=== PATIENT | male | born 1995 | race Caucasian/White ===

== ENCOUNTER 2017-07-14 13:21 | Emergency (ER) | payer SELFPAY ==
[~2017-07-14] VITALS: Ht 175.3 cm; Wt 83.4 kg
[~2017-07-14 13:21] MED LIST: VALA1TAB PO
[2017-07-14 13:23] VITALS: BP 137/76; PULSE 80; RESP 18; TEMP 97.5; O2SAT 98
[2017-07-14] MEDS ORDERED: METHOCARBAMOL 500 MG TAB PO ONE (14:00)
[2017-07-14] MEDS ORDERED: IBUPROFEN 800 MG TAB PO ONE (14:00)
--- NOTE | 2017-07-14 14:30 | PD ---
HPI Chief Complaint: Pain: Acute or Chronic Time Seen by Provider: 13:50 Travel History International Travel<30 days: No Contact w/Intl Traveler<30days: No Traveled to known affect area: No History of Present Illness HPI 21-year-old male presents to the emergency room for evaluation of right lower leg pain for the past week that worsened 4 days ago. Patient states he has fallen off his skateboard a few times but denies any direct trauma or injury. States he believes the pain is caused by using his right leg to push off the ground while using his skateboard. He began using it more frequently recently as he just became homeless and that's his only transportation. Patient has no access to medication; has not taken anything for pain. Pain is intermittent and worsened with certain range of motion and when he touches the leg. Sometimes he has pain at rest but not always. He denies trauma or injury to the back. Reports pain that is most localized to the right lateral aspect of the ankle. He has associated pain in the buttocks that goes down the entire right leg. States it feels like his lateral malleolus is asleep. He has been able to ambulate since onset of pain. Denies saddle anesthesia or loss of bowel or bladder control. Denies IV drug use, weight loss, night sweats, fever , chills, or recent immobilization. 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) Immunizations Current: Yes Shingles: Yes Tetanus Vaccination: Unknown Influenza Vaccination: No Past Surgical History Tonsillectomy: Yes (ADNOIDS) Social History Alcohol Use: No Tobacco Use: No Substance Use: No Allergies-Medications (Allergen,Severity, Reaction): Coded Allergies: amphetamine (Unverified Allergy, Severe, BLOOD VESSELS AROUND EYES BROKE, 07/14/17) atomoxetine (Unverified Allergy, Severe, NEURO S/S, 07/14/17) codeine (Unverified Allergy, Severe, RASH/SWELLING, 07/14/17) dextroamphetamine (Unverified Allergy, Severe, BLOOD VESSELS AROUND EYES BROKE, 07/14/17) methylphenidate (Unverified Allergy, Severe, ALTERED SLEEP SCHEDULE, ) penicillin G (Unverified Allergy, Severe, HIVES AND SWELLING, 07/14/17) bupropion (Unverified Allergy, Unknown, VOMITING, 07/14/17) Reported Meds & Prescriptions Reported Meds & Active Scripts Active Ibuprofen 600 Mg Tab 600 Mg PO Q8HR PRN Robaxin (Methocarbamol) 750 Mg Tab 750 Mg PO Q8HR Review of Systems Except as stated in HPI: all other systems reviewed are Neg Physical Exam Narrative GENERAL: Well-nourished, well-developed male in no acute distress. Afebrile. Ambulatory. SKIN: Focused skin assessment warm/dry. No erythema or ecchymosis. No increased warmth. HEAD: Normocephalic. EYES: No scleral icterus. No injection or drainage. NECK: Supple, trachea midline. No JVD or lymphadenopathy. CARDIOVASCULAR: Regular rate and rhythm without murmurs, gallops, or rubs. RESPIRATORY: Breath sounds equal bilaterally. No accessory muscle use. MUSCULOSKELETAL: No cyanosis. 2+ dorsalis pedis pulse. Full range motion of the right lower extremity. Less than 2 second capillary refill distally. No bony tenderness to palpation. No edema. Compartments soft. BACK: Nontender without obvious deformity. No CVA tenderness. Data Data Last Documented VS Vital Signs Date Time Temp Pulse Resp B/P (MAP) Pulse Ox O2 Delivery O2 Flow Rate FiO2 07/14/17 14:54 18 07/14/17 13:23 97.5 80 137/76 (96) 98 Orders Orders Ibuprofen (Motrin) (07/14/17 14:00) Methocarbamol (Robaxin) (07/14/17 14:00) MDM Medical Decision Making Medical Screen Exam Complete: Yes Emergency Medical Condition: Yes Medical Record Reviewed: Yes Differential Diagnosis Muscle strain, spasm, back injury, sciatica Narrative Course 21-year-old male presents to the emergency room for evaluation of nonspecific right leg pain for the past week that became excruciating 4 days ago. Pain is intermittent and worse with certain range of motion. Sometimes occurs at rest. Difficult to localize. He has been ambulatory and using his skateboard since onset. Patient believes it may be due to recent increase in using his skateboard as it is his only transportation since becoming homeless. Right lower extremity is neurovascularly intact with 2+ dorsalis pedis pulse. There is no erythema, ecchymosis or edema, effusion, bony tenderness to palpation. Compartments soft. There is no midline tenderness of the spine. No risk factors for DVT, epidural abscess, or bone cancer. No indication for imaging at this time. I cleaned muscle strain. Patient given ibuprofen and Robaxin the emergency room and discharged with prescriptions for the same. Told to follow up with a primary care physician and return for worsening symptoms. He understands and agrees to plan. Diagnosis Primary Impression: Muscle strain, lower leg Qualified Codes: S86.911A - Strain of unspecified muscle(s) and tendon(s) at lower leg level, right leg, initial encounter Referrals: Primary Care Physician Additional Instructions: Rest and drink plenty of fluids. Take Robaxin as directed, as needed for pain. Take ibuprofen with food as directed, as needed for pain. Apply ice to the affected area for 20 minutes at a time, as needed for pain and swelling. Follow-up with a primary care physician. Return to the emergency room for worsening symptoms. Med/Other Pt SpecificInfo: Prescription(s) given Scripts Ibuprofen (Ibuprofen) 600 Mg Tab 600 MG PO Q8HR Y for PAIN, #21 TAB 0 Refills Prov: Yesi Bender MD 07/14/17 Methocarbamol (Robaxin) 750 Mg Tab 750 MG PO Q8HR for Muscle Spasm, #10 TAB 0 Refills Prov: Yesi Bender MD 07/14/17 Disposition: 01 DISCHARGE HOME Condition: Stable Lesly Celeste Jul 14, 2017 14:30
[2017-07-14] MEDS ORDERED: IBUP-232 PO (14:31)
[2017-07-14] MEDS ORDERED: ROBA750T PO (14:31)
[2017-07-14 14:54] VITALS: RESP 18
== END 2017-07-14 15:05 | disposition home or self-care (01) ==
LOC: PHEFT 13:21
DX: S86.911A Strain of unspecified muscle(s) and tendon(s) at lower leg level, right leg, initial encounter (principal); R20.2 Paresthesia of skin; Z86.59 Personal history of other mental and behavioral disorders; Z86.69 Personal history of other diseases of the nervous system and sense organs; Z59.0 Homelessness; X58.XXXA Exposure to other specified factors, initial encounter; Y93.51 Activity, roller skating (inline) and skateboarding
CPT/HCPCS: 99283

== ENCOUNTER 2017-09-25 13:13 | Emergency (ER) | payer SELFPAY ==
[~2017-09-25] VITALS: Ht 175.3 cm; Wt 85.0 kg
[~2017-09-25 13:13] MED LIST changes: +IBUP-232 PO; +ROBA750T PO; -VALA1TAB PO
[2017-09-25 13:21] VITALS: BP 135/67; PULSE 75; RESP 16; TEMP 98.2; O2SAT 98
[2017-09-25] MEDS ORDERED: BACT800T5 PO (14:12)
--- NOTE | 2017-09-25 14:12 | PD ---
HPI Chief Complaint: Wound/Suture/Staple Re-Check Time Seen by Provider: 13:53 Travel History International Travel<30 days: No Contact w/Intl Traveler<30days: No Traveled to known affect area: No History of Present Illness HPI 21-year-old male here with right foot pain 1 day. He reports approximately 2 weeks ago he had a superficial puncture wound by a chrissy nail which superficially punctured the foot. The puncture wound was superficial and did not bleed. He had no pain after the injury until yesterday. He denies fever or chills. He reports pain at the site which is nonradiating and worse with weightbearing and relieved with rest. This immunization is up-to-date [facility] Past Medical History Medical History: Denies Significant Hx ADD: Yes Diminished Hearing: No Integumentary: Yes (SHINGLES BY EYE) Immunizations Current: Yes Shingles: Yes Tetanus Vaccination: > 5 Years Past Surgical History Tonsillectomy: Yes (and adenoids) Social History Alcohol Use: No Tobacco Use: Yes (3/4 ppd) Substance Use: No (denies) Allergies-Medications (Allergen,Severity, Reaction): Coded Allergies: amphetamine (Unverified Allergy, Severe, BLOOD VESSELS AROUND EYES BROKE, 09/25/17) atomoxetine (Unverified Allergy, Severe, NEURO S/S, 09/25/17) codeine (Unverified Allergy, Severe, RASH/SWELLING, 09/25/17) dextroamphetamine (Unverified Allergy, Severe, BLOOD VESSELS AROUND EYES BROKE, 09/25/17) methylphenidate (Unverified Allergy, Severe, ALTERED SLEEP SCHEDULE, 09/25) penicillin G (Unverified Allergy, Severe, HIVES AND SWELLING, 09/25/17) bupropion (Unverified Allergy, Unknown, VOMITING, 09/25/17) Reported Meds & Prescriptions Reported Meds & Active Scripts Active Bactrim DS (Sulfamethoxazole-Trimethoprim) 800-160 Mg Tab 1 Tab PO BID Review of Systems Except as stated in HPI: all other systems reviewed are Neg General / Constitutional: No: Fever Physical Exam Narrative GENERAL: Well-nourished, well-developed patient. SKIN: Focused skin assessment warm/dry. Small 0.5 cm area of erythema with a tiny central pustule and sole of the right foot. No surrounding cellulitis. No swelling of the foot. 2+ dorsal pedis pulse. Brisk cap refill HEAD: Normocephalic. EYES: No scleral icterus. No injection or drainage. NECK: Supple, trachea midline. MUSCULOSKELETAL: No cyanosis, or edema. Attention to the right foot: Small 0.5 cm area of erythema with a tiny central pustule and sole of the right foot. No surrounding cellulitis. No swelling of the foot. 2+ dorsal pedis pulse. Brisk cap refill Data Data Last Documented VS Vital Signs Date Time Temp Pulse Resp B/P (MAP) Pulse Ox O2 Delivery O2 Flow Rate FiO2 09/25/17 13:21 98.2 75 16 135/67 (89) 98 Orders Orders Ed Discharge Order (09/25/17 14:12) MDM Medical Decision Making Medical Screen Exam Complete: Yes Emergency Medical Condition: Yes Differential Diagnosis Abscess, cellulitis, wound infection Narrative Course 21 year old male here with right foot pain 1 day. Patient reports approximately 3. Superficial puncture wound by a chrissy nail. He has mild tenderness and pain at the site of the puncture wound. There is no swelling of the foot there is mild superficial tenderness at the site of what he says was a puncture wound. I do not suspect foreign body. He has a small pustule without induration or fluctuance at the sole of the foot. He denies fever or chills. He is nontoxic appearing. He'll from Bactrim. Diagnosis Primary Impression: Wound infection Referrals: Primary Care Physician Additional Instructions: Take antibiotics as prescribed. Ice and elevate the extremity. Take ibuprofen as needed for pain. With your primary doctor for recheck Scripts Sulfamethoxazole-Trimethoprim (Bactrim DS) 800-160 Mg Tab 1 TAB PO BID for Infection, #20 TAB 0 Refills Prov: Michell Cha 09/25/17 Disposition: 01 DISCHARGE HOME Condition: Stable Michell Cha Sep 25, 2017 14:12
== END 2017-09-25 14:37 | disposition home or self-care (01) ==
LOC: PHEFT 13:13
DX: L08.89 Other specified local infections of the skin and subcutaneous tissue (principal); W45.0XXA Nail entering through skin, initial encounter
CPT/HCPCS: 99283

== ENCOUNTER 2017-10-05 12:18 | Emergency (ER) | payer SELFPAY ==
[~2017-10-05] VITALS: Ht 175.3 cm; Wt 86.1 kg
[~2017-10-05 12:18] MED LIST changes: +BACT800T5 PO; -IBUP-232 PO; -ROBA750T PO
[2017-10-05 12:29] VITALS: BP 133/78; PULSE 75; RESP 18; TEMP 98.6; O2SAT 98
[2017-10-05] MEDS ORDERED: BACT800T5 PO (14:11)
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
[2017-10-05] MEDS ORDERED: ACETAMINOPHEN 325 MG TAB PO ONE (14:15)
== END 2017-10-05 14:23 | disposition home or self-care (01) ==
LOC: PHEFT 12:18
DX: S61.432A Puncture wound without foreign body of left hand, initial encounter (principal); F17.200 Nicotine dependence, unspecified, uncomplicated; W26.0XXA Contact with knife, initial encounter
CPT/HCPCS: 99283

== ENCOUNTER 2018-02-01 20:03 | Emergency (ER) | payer OTHER ==
--- NOTE | 2018-02-01 20:43 | PD ---
HPI Chief Complaint: Psychiatric Symptoms Time Seen by Provider: 20:35 Travel History International Travel<30 days: No Contact w/Intl Traveler<30days: No History of Present Illness HPI Patient comes in the emergency department under [place] act by police for reported being intoxicated and violent. Patient admits to drinking alcohol daily, but will not say how much he drinks. Patient is currently in restraints and not answering most questions just yelling and appears to be under the influence of unknown substance, thus severely limiting H&P. 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) Immunizations Current: Yes Shingles: Yes Past Surgical History Tonsillectomy: Yes (and adenoids) Social History Alcohol Use: No Tobacco Use: Yes (3/4 ppd) Substance Use: No Allergies-Medications (Allergen,Severity, Reaction): Coded Allergies: amphetamine (Unverified Allergy, Severe, BLOOD VESSELS AROUND EYES BROKE, 10/05/17) atomoxetine (Unverified Allergy, Severe, NEURO S/S, 10/05/17) codeine (Unverified Allergy, Severe, RASH/SWELLING, 10/05/17) dextroamphetamine (Unverified Allergy, Severe, BLOOD VESSELS AROUND EYES BROKE, 10/05/17) methylphenidate (Unverified Allergy, Severe, ALTERED SLEEP SCHEDULE, ) penicillin G (Unverified Allergy, Severe, HIVES AND SWELLING, 10/05/17) bupropion (Unverified Allergy, Unknown, VOMITING, 10/05/17) Reported Meds & Prescriptions Reported Meds & Active Scripts Active Bactrim DS (Sulfamethoxazole-Trimethoprim) 800-160 Mg Tab 1 Tab PO BID Review of Systems ROS Limitations: Intoxication, Uncooperative, Combative Except as stated in HPI: all other systems reviewed are Neg Physical Exam Exam Limitations: Intoxication, Uncooperative, Combative Narrative GENERAL: Well-developed, overly nourished, in no acute distress, and non-ill appearing. SKIN: Focused skin assessment warm and dry. HEAD: Atraumatic. Normocephalic. EYES: Pupils equal and round. EOMI. No scleral icterus. No injection or drainage. ENT: No nasal bleeding or discharge. Mucous membranes pink and moist. NECK: Trachea midline. Supple. No nuclear rigidity. RESPIRATORY: No accessory muscle use. No respiratory distress. MUSCULOSKELETAL: No obvious deformities. No clubbing. No cyanosis. No edema. Full range of motion. NEUROLOGICAL: Awake and alert. No obvious cranial nerve deficits. Motor grossly within normal limits. Agitated speech. PSYCHIATRIC: Agitated. Data Data Orders Orders Complete Blood Count With Diff (02/01/18 20:22) Comprehensive Metabolic Panel (02/01/18 20:22) Psych Screen (02/01/18 20:22) Diet Regular Basic (02/02/18 Breakfast) Drug Screen, Random Urine (02/01/18 20:22) Alcohol (Ethanol) (02/01/18 20:22) Olanzapine Inj (Zyprexa Inj) (02/01/18 20:45) Restraints Violent (02/01/18 21:10) Labs Laboratory Tests Test 02/01/18 20:25 White Blood Count 5.7 TH/MM3 Red Blood Count 4.94 MIL/MM3 Hemoglobin 14.7 GM/DL Hematocrit 42.1 % Mean Corpuscular Volume 85.3 FL Mean Corpuscular Hemoglobin 29.7 PG Mean Corpuscular Hemoglobin Concent 34.8 % Red Cell Distribution Width 12.8 % Platelet Count 250 TH/MM3 Mean Platelet Volume 8.7 FL Neutrophils (%) (Auto) 71.8 % Lymphocytes (%) (Auto) 22.6 % Monocytes (%) (Auto) 5.2 % Eosinophils (%) (Auto) 0.2 % Basophils (%) (Auto) 0.2 % Neutrophils # (Auto) 4.1 TH/MM3 Lymphocytes # (Auto) 1.3 TH/MM3 Monocytes # (Auto) 0.3 TH/MM3 Eosinophils # (Auto) 0.0 TH/MM3 Basophils # (Auto) 0.0 TH/MM3 CBC Comment DIFF FINAL Differential Comment Blood Urea Nitrogen 8 MG/DL Creatinine 1.22 MG/DL Random Glucose 99 MG/DL Total Protein 8.3 GM/DL Albumin 4.4 GM/DL Calcium Level 9.1 MG/DL Alkaline Phosphatase 107 U/L Aspartate Amino Transf (AST/SGOT) 35 U/L Alanine Aminotransferase (ALT/SGPT) 25 U/L Total Bilirubin 0.3 MG/DL Sodium Level 144 MEQ/L Potassium Level 3.3 MEQ/L Chloride Level 109 MEQ/L Carbon Dioxide Level 22.5 MEQ/L Anion Gap 13 MEQ/L Estimat Glomerular Filtration Rate 74 ML/MIN Ethyl Alcohol Level 262 MG/DL MDM Medical Decision Making Medical Screen Exam Complete: Yes Emergency Medical Condition: Yes Differential Diagnosis Homicidal, suicidal, combative, adjustment disorder, alcohol induced mood disorder, substance induced mood disorder, psychosis Narrative Course Patient was seen and examined. Labs were obtained and reviewed with the exception of urine drug screen that has not been collected yet. Patient medically cleared for further treatment and evaluation by psych. Once patient is sober he can be reassessed at that time by different provider if he has any acute medical complaints. Final disposition per psych. Diagnosis Primary Impression: Alcohol intoxication Qualified Codes: F10.929 - Alcohol use, unspecified with intoxication, unspecified Additional Impression: Medical clearance for psychiatric admission Condition: Stable Brent Bettencourt Feb 01, 2018 20:43
[2018-02-01] MEDS ORDERED: OLANZapine IM 10 MG VIAL IM ONE (20:45)
[2018-02-01 21:09] LABS: AUTOMATED NEUTROPHIL # 4.1 TH/MM3 (1.8-7.7); BASOPHIL % 0.2 % (0.0-2.0); EOSINOPHIL % 0.2 % (0.0-4.0); HEMATOCRIT 42.1 % (39.0-51.0); HEMOGLOBIN 14.7 GM/DL (13.0-17.0); LYMPH % 22.6 % (9.0-44.0); LYMPHOCYTE # 1.3 TH/MM3 (1.0-4.8); MEAN CELL VOLUME 85.3 FL (80.0-100.0); MEAN CORPUSCULAR HEMOGLOBIN 29.7 PG (27.0-34.0); MEAN CORPUSCULAR HGB CONC 34.8 % (32.0-36.0); MEAN PLATELET VOLUME 8.7 FL (7.0-11.0); MONO % 5.2 % (0.0-8.0); MONOCYTE # 0.3 TH/MM3 (0-0.9); NEUT % 71.8 % (16.0-70.0); PLATELET COUNT 250 TH/MM3 (150-450); RED BLOOD COUNT 4.94 MIL/MM3 (4.50-5.90); RED CELL DISTRIBUTION WIDTH 12.8 % (11.6-17.2); WHITE BLOOD COUNT 5.7 TH/MM3 (4.0-11.0)
[2018-02-01 21:33] LABS: ALBUMIN 4.4 GM/DL (3.4-5.0); AST (GOT) 35 U/L (15-37); BICARBONATE 22.5 MEQ/L (21.0-32.0); BLOOD UREA NITROGEN 8 MG/DL (7-18); CALCIUM 9.1 MG/DL (8.5-10.1); CHLORIDE 109 MEQ/L (98-107); CREATININE 1.22 MG/DL (0.60-1.30); GLOMERULAR FILTRATION RATE 74 ML/MIN (>89); GLUCOSE,RANDOM 99 MG/DL (74-106); SODIUM (NA) 144 MEQ/L (136-145)
[2018-02-01 21:34] LABS: ALT (GPT) 25 U/L (12-78)
[2018-02-01 21:36] LABS: ALKALINE PHOSPHATASE 107 U/L (45-117); TOTAL BILIRUBIN ADULT 0.3 MG/DL (0.2-1.0); TOTAL PROTEIN 8.3 GM/DL (6.4-8.2)
[2018-02-02 02:43] VITALS: BP 122/65; PULSE 63; RESP 16; TEMP 97.9
[2018-02-02 06:50] VITALS: BP 151/68; PULSE 70; RESP 16
--- NOTE | 2018-02-02 08:41 | PD ---
Physical Exam Date Seen by Provider: Feb 02, 2018 Time Seen by Provider: 08:40 Narrative 22-year-old previously medically cleared for psychiatric evaluation has been seen by psychiatric staff and deemed worthy of transfer to [facility]. Patient requires further treatment at that facility. Patient remains medically stable at time of transfer. Data Data Last Documented VS Vital Signs Date Time Temp Pulse Resp B/P (MAP) Pulse Ox O2 Delivery O2 Flow Rate FiO2 02/02/18 06:50 70 16 151/68 (95) Room Air 02/02/18 02:43 97.9 Orders Orders Complete Blood Count With Diff (02/01/18 20:22) Comprehensive Metabolic Panel (02/01/18 20:22) Psych Screen (02/01/18 20:22) Diet Regular Basic (02/02/18 Breakfast) Drug Screen, Random Urine (02/01/18 20:22) Alcohol (Ethanol) (02/01/18 20:22) Olanzapine Inj (Zyprexa Inj) (02/01/18 20:45) Restraints Violent (02/01/18 21:10) Labs Laboratory Tests Test 02/01/18 20:25 02/02/18 03:50 White Blood Count 5.7 TH/MM3 Red Blood Count 4.94 MIL/MM3 Hemoglobin 14.7 GM/DL Hematocrit 42.1 % Mean Corpuscular Volume 85.3 FL Mean Corpuscular Hemoglobin 29.7 PG Mean Corpuscular Hemoglobin Concent 34.8 % Red Cell Distribution Width 12.8 % Platelet Count 250 TH/MM3 Mean Platelet Volume 8.7 FL Neutrophils (%) (Auto) 71.8 % Lymphocytes (%) (Auto) 22.6 % Monocytes (%) (Auto) 5.2 % Eosinophils (%) (Auto) 0.2 % Basophils (%) (Auto) 0.2 % Neutrophils # (Auto) 4.1 TH/MM3 Lymphocytes # (Auto) 1.3 TH/MM3 Monocytes # (Auto) 0.3 TH/MM3 Eosinophils # (Auto) 0.0 TH/MM3 Basophils # (Auto) 0.0 TH/MM3 CBC Comment DIFF FINAL Differential Comment Blood Urea Nitrogen 8 MG/DL Creatinine 1.22 MG/DL Random Glucose 99 MG/DL Total Protein 8.3 GM/DL Albumin 4.4 GM/DL Calcium Level 9.1 MG/DL Alkaline Phosphatase 107 U/L Aspartate Amino Transf (AST/SGOT) 35 U/L Alanine Aminotransferase (ALT/SGPT) 25 U/L Total Bilirubin 0.3 MG/DL Sodium Level 144 MEQ/L Potassium Level 3.3 MEQ/L Chloride Level 109 MEQ/L Carbon Dioxide Level 22.5 MEQ/L Anion Gap 13 MEQ/L Estimat Glomerular Filtration Rate 74 ML/MIN Ethyl Alcohol Level 262 MG/DL Urine Opiates Screen NEG Urine Barbiturates Screen NEG Urine Amphetamines Screen NEG Urine Benzodiazepines Screen NEG Urine Cocaine Screen NEG Urine Cannabinoids Screen NEG MDM Medical Record Reviewed: Yes Supervised Visit with CARLOS: Yes Narrative Course 22-year-old previously medically cleared for psychiatric evaluation has been seen by psychiatric staff and deemed worthy of transfer to [facility]. Patient requires further treatment at that facility. Patient remains medically stable at time of transfer. Diagnosis Primary Impression: Alcohol intoxication Qualified Codes: F10.929 - Alcohol use, unspecified with intoxication, unspecified Additional Impression: Medical clearance for psychiatric admission Patient Instructions: General Instructions Disposition: 70 TRANSFER TO OTHER FACILITY Condition: Stable Danilo Castaneda Feb 02, 2018 08:41
== END 2018-02-02 10:06 ==
LOC: NEPJ 20:03
DX: F10.929 Alcohol use, unspecified with intoxication, unspecified (principal); Z88.0 Allergy status to penicillin; Z88.5 Allergy status to narcotic agent; Z88.2 Allergy status to sulfonamides; Z72.0 Tobacco use
CPT/HCPCS: 80053; 80307; 85025; 96372

== ENCOUNTER 2018-04-15 13:01 | Emergency (ER) | payer SELFPAY ==
[2018-04-15 13:03] VITALS: BP 143/78; PULSE 69; RESP 16; TEMP 97.9; O2SAT 100
[2018-04-15] MEDS ORDERED: BACT800T5 PO (13:24)
--- NOTE | 2018-04-15 13:32 | PD ---
HPI Chief Complaint: Bite or Sting Time Seen by Provider: 13:14 Travel History International Travel<30 days: No Contact w/Intl Traveler<30days: No Traveled to known affect area: No History of Present Illness HPI 22-year-old male presents emergency department for evaluation of multiple bites to bilateral feet and a single bite to the left foot that he noticed 2 days ago. Patient says that he is homeless and is concerned about the small bumps on his feet because he "shares drinks with others". Patient says that these bumps have appeared previously about 1 year ago but resolved spontaneously. Says that these bumps appear and resolve spontaneously without treatment everyday. Denies new soaps or lotions. Denies recent travel or exposures to others with similar symptoms. Says he wears shoes and socks all the time and believes it may be a heat rash. He denies fevers or chills. He denies pain or significant pruritus. The bite on his right foot is believed to be from an insect that has worsened over the last day. Denies significant pain or discharge. Says he has good hygiene. 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) Immunizations Current: Yes Shingles: Yes Tetanus Vaccination: Unknown Influenza Vaccination: No Past Surgical History Tonsillectomy: Yes (and adenoids) Social History Alcohol Use: No Tobacco Use: Yes (/ ppd) Substance Use: No Allergies-Medications (Allergen,Severity, Reaction): Coded Allergies: amphetamine (Verified Allergy, Severe, BLOOD VESSELS AROUND EYES BROKE, ) atomoxetine (Verified Allergy, Severe, NEURO S/S, 04/15/18) codeine (Verified Allergy, Severe, RASH/SWELLING, 04/15/18) dextroamphetamine (Verified Allergy, Severe, BLOOD VESSELS AROUND EYES BROKE, 04/15/18) methylphenidate (Verified Allergy, Severe, ALTERED SLEEP SCHEDULE, 04/15/18 ) penicillin G (Verified Allergy, Severe, HIVES AND SWELLING, 04/15/18) bupropion (Verified Allergy, Unknown, VOMITING, 04/15/18) Reported Meds & Prescriptions Reported Meds & Active Scripts Active Bactrim DS (Sulfamethoxazole-Trimethoprim) 800-160 Mg Tab 1 Tab PO BID Review of Systems Except as stated in HPI: all other systems reviewed are Neg Physical Exam Narrative GENERAL: Well-nourished, well-developed patient, in NAD SKIN: Focused skin assessment warm/dry. Bilateral feet: pinpoint, blanching rash scattered across bilateral feet. no edema or erythema of lower extremities. right MCP 2cm area of erythema without fluctuance or induration. no discharge. central ulceration HEAD: Normocephalic. Atraumatic. EYES: No scleral icterus. No injection or drainage. THROAT: Airway is patent. NECK: Supple, trachea midline. No JVD or lymphadenopathy. No meningismus. CARDIOVASCULAR: Regular rate and rhythm without murmurs, gallops, or rubs. RESPIRATORY: Breath sounds equal bilaterally. No accessory muscle use. No wheezes, rales, or rhonchi MUSCULOSKELETAL: No cyanosis, or edema. BACK: Nontender without obvious deformity. No CVA tenderness. Data Data Last Documented VS Vital Signs Date Time Temp Pulse Resp B/P (MAP) Pulse Ox O2 Delivery O2 Flow Rate FiO2 04/15/18 13:03 97.9 69 16 143/78 (99) 100 Orders Orders Ed Discharge Order (04/15/18 13:32) MDM Medical Decision Making Medical Screen Exam Complete: Yes Emergency Medical Condition: Yes Differential Diagnosis Folliculitis, scabies, bug bite Narrative Course 22-year-old male presents emergency department for evaluation of a rash and a bite to the feet. Patient says the rash on bilateral feet have been present for approximately 1 month with spontaneous appearance and resolution. Says he has a bite on his right foot is concerned about an infection. During examination, patient asks about getting blood work. Advised that there is no reason for me to get blood work on him today. Advised that he should follow-up with a primary care physician for his regular care. I do not suspect a serious infectious process at this point however, patient is homeless and I do not believe that his condition will improve without intervention. Patient prescribed Bactrim as this is no charge to him at [facility]. He is strongly advised follow-up with a primary care physician. [facility] and [facility] are options for him. Advised to continue to have good hygiene to reduce complications and chance of infection. Diagnosis Primary Impression: Folliculitis Additional Impression: Bite Referrals: [facility] Patient Instructions: Acute Rash (ED), General Instructions Additional Instructions: I recommend you follow up with a primary care physician for regular care and treatment. Take all medication as prescribed. Bactrim is free of [facility]. If your rash persists, I recommend you follow-up with a service delivery analyst for further evaluation. Keep your feet and the wound clean and dry to avoid complications. Scripts Sulfamethoxazole-Trimethoprim (Bactrim DS) 800-160 Mg Tab 1 TAB PO BID for Infection, #14 TAB 0 Refills Prov: Jung Jefferson MD 04/15/18 Disposition: 01 DISCHARGE HOME Condition: Stable Yulissa Barnett Apr 15, 2018 13:32
== END 2018-04-15 13:38 | disposition home or self-care (01) ==
LOC: PHEFT 13:01
DX: L73.9 Follicular disorder, unspecified (principal); S90.871A Other superficial bite of right foot, initial encounter; X58.XXXA Exposure to other specified factors, initial encounter; Z59.0 Homelessness; F17.200 Nicotine dependence, unspecified, uncomplicated
CPT/HCPCS: 99283